=== PATIENT | female | born 1975 | race Caucasian/White ===

== ENCOUNTER 2016-06-18 14:43 | Emergency (ER) | payer OTHER ==
[~2016-06-18] VITALS: Ht 167.6 cm; Wt 56.7 kg
[2016-06-18] MEDS ORDERED: Metoclopramide 10mg/2ml Inj IVP ONE (15:15)
[2016-06-18 15:20] VITALS: BP 136/69
[2016-06-18 15:34] LABS: MEAN CORPUSCULAR HEMOGLOBIN 34.7 PG (27.0-31.0); MEAN CORPUSCULAR HGB CONC 35.5 G/DL (32.0-36.0); MEAN CORPUSCULAR VOLUME 98 FL (80-99); MEAN PLATELET VOLUME 6.8 FL (6.5-10.1); PLATELET COUNT 246 K/UL (150-450); RED BLOOD COUNT 4.57 M/UL (4.20-5.40); RED CELL DISTRIBUTION WIDTH 11.8 % (11.6-14.8); WHITE BLOOD COUNT 7.5 K/UL (4.8-10.8)
--- NOTE | 2016-06-18 16:04 | Emergency Room Report ---
History of Present Illness General Chief Complaint: Nausea, Vomiting, and Diarrhea Source: Patient Present Illness HPI [id number] with nausea/vomiting/diarrhea and generalized abd pain since last night after dinner. Coming from [facility] facility. No other sick contacts at facility. Previous distant surgery for dermoid cyst removal "long time ago." Denies other surgery, medical problems, urinary complaints. States pain is sharp , 8/10, bilateral abdomen and bilateral lower abdomen. Improved with defecation , vomiting. Didnt take any OTC meds. Allergies: Coded Allergies: No Known Allergies (Unverified , 06/18/16) Patient History Past Medical History: none Past Surgical History: other - dermoid cyst removal Pertinent Family History: none Social History: Reports: alcohol use Last Menstrual Period: 7 years ago Now: No Immunizations: UTD Reviewed Nursing Documentation: PMH: Agreed, PSxH: Agreed Nursing Documentation-PMH Past Medical History: No History, Except For Review of Systems All Other Systems: negative except mentioned in HPI Physical Exam Vital Signs Date Time Temp Pulse Resp B/P Pulse Ox O2 Delivery O2 Flow Rate FiO2 06/18/16 14:55 98.4 49 18 136/69 97 Room Air Sp02 EP Interpretation: reviewed, normal General Appearance: normal inspection, well appearing, no apparent distress, alert, GCS 15, non-toxic Head: normocephalic, atraumatic Eyes: bilateral eye EOMI, bilateral eye PERRL ENT: normal ENT inspection, hearing grossly normal, normal voice Neck: normal inspection, full range of motion, supple, no bony tend Respiratory: normal inspection, lungs clear, normal breath sounds, no respiratory distress, no retraction, no wheezing Cardiovascular #1: regular rate, rhythm, no edema Gastrointestinal: normal inspection, normal bowel sounds, soft, no guarding, no hernia, other - generalized abd ttp Genitourinary: no CVA tenderness Musculoskeletal: normal inspection, back normal, normal range of motion, Halle' s Sign negative Neurologic: normal inspection, alert, oriented x3, responsive, 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 H&H stable. Lipase normal. Mild elevations in LFTs, likely from chronic ETOH Patient refused to give urine to check UA and utox ETOH level 0 Feels better after IVF, medication Likely acute viral gastroenteritis Tolerating PO DC with PEPCID, Zofran PMD followup Last Vital Signs Date Time Temp Pulse Resp B/P Pulse Ox O2 Delivery O2 Flow Rate FiO2 06/18/16 15:20 98.4 18 136/69 97 Room Air 06/18/16 14:55 49 Status: improved Disposition: HOME, SELF-CARE Scripts Ondansetron Odt* (ZOFRAN ODT*) 4 Mg Tab.rapdis 4 MG ORAL BID Y for Nausea & Vomiting, #14 TAB 0 Refills Prov: NATALIE GONZALEZ M.D. 06/18/16 Famotidine (PEPCID) 20 Mg Tablet 20 MG ORAL BID for 7 Days, #14 TAB 0 Refills Prov: NATALIE GONZALEZ M.D. 06/18/16 Referrals: NOT CHOSEN JAROD/,REFERRING (PCP) NATALIE GONZALEZ M.D. Jun 18, 2016 16:04
[2016-06-18] MEDS ORDERED: Famotidine 20 MG/ 2ML VIAL IVP ONE (16:15)
[2016-06-18 16:17] LABS: ALANINE AMINOTRANSFERASE 131 U/L (3-33); ALBUMIN/GLOBULIN RATIO 1.8 (1.0-2.7); ALCOHOL < 10 mg/dL; ANION GAP 20 (5-15); ASPARTATE AMINO TRANSFERASE 78 U/L (5-40); CALCIUM 9.5 mg/dL (8.6-10.2); CARBON DIOXIDE 23 mEQ/L (20-30); CHLORIDE 93 mEQ/L (98-107); CREATININE 0.8 mg/dL (0.5-0.9); GLOMERULAR FILTRATION RATE > 60 mL/min (>60); HEMOLYSIS 172; LIPASE 41 U/L (< 60); POTASSIUM 5.1 mEQ/L (3.4-4.9); SODIUM 136 mEQ/L (135-145); TOTAL PROTEIN 7.3 g/dL (6.6-8.7)
[2016-06-18] MEDS ORDERED: ZOFRAN ODT4 MG ORAL (16:50)
[2016-06-18] MEDS ORDERED: PEPCID20 MG ORAL (16:50)
[2016-06-18 16:52] VITALS: BP 132/77
[2016-06-18 17:48] LABS: BAND NEUTROPHILS % (MANUAL) 0 % (0-8); BASOPHILS % (MANUAL) 0 % (0-2); EOSINOPHILS % (MANUAL) 0 % (0-3); LYMPHOCYTES % (MANUAL) 9 % (20-45); NEUTROPHILS % (MANUAL) 88 % (45-75); PLATELET ESTIMATE ADEQUATE; PLATELET MORPHOLOGY NORMAL; TOTAL CELLS COUNTED 100
== END 2016-06-18 16:52 | disposition home or self-care (01) ==
LOC: EMR 15:22
DX: R11.2 Nausea with vomiting, unspecified (principal); R19.7 Diarrhea, unspecified
CPT/HCPCS: 36415; 80053; 83690; 85007; 85025; 96360; 96374; 96375; 99284; G0480; J2405; J2765; S0028; 80329